=== PATIENT | female | born 2000 | race Caucasian/White ===

== ENCOUNTER 2022-09-18 18:46 | Emergency (ER) | payer OTHER ==
[2022-09-18 18:54] VITALS: BP 141/82; PULSE 63; RESP 16; TEMP 98.1; BMI 29.2
[2022-09-18] MEDS ORDERED: KETOROLAC TROMETHAMINE 30 MG/1 ML VIAL IM ONE (19:23)
[2022-09-18] MEDS ORDERED: KETOROLAC TROMETHAMINE 30 MG/1 ML VIAL ONE (19:26)
== END 2022-09-18 19:31 | disposition home or self-care (01) ==
LOC: JERFT 18:46
PROC: 3E023GC Introduction of Other Therapeutic Substance into Muscle, Percutaneous Approach (ICD-10-PCS; principal; 2022-09-18)
DX: K08.89 Other specified disorders of teeth and supporting structures (principal)
CPT/HCPCS: 99284-25